=== PATIENT | male | born 1950 | race African-American/Black ===

== ENCOUNTER 2016-06-10 15:54 | Inpatient (IN) ==
--- NOTE | 2016-06-10 16:15 | Emergency Department Note ---
Arrival - Arrival Limitations: Altered Mental Status Source: EMS, RN Notes Reviewed Time Seen by Provider: 06/10/16 16:06 - History of Present Illness HPI Narrative: Patient is a 66-year-old black male who is brought to the emergency department at [facility] in transfer from the emergency department at [facility]. Patient apparently had been at the [facility] since this morning and according to a friend had been "acting funny" ever since a left [facility] early this morning. The patient has a known history of diabetes mellitus. His medication regimen is unknown. Patient began to become more more confused and EMS was called. By the time the patient arrived in the emergency department he was obviously confused and began having seizures which were uncontrolled with Ativan. Patient was intubated at the [facility] emergency department and placed on a Versed infusion. Patient's blood sugar returned from the lab at a level of greater than 1300. The patient was noted to have a large amount of candy in his possession. Patient was transferred to [place] for treatment of status epilepticus and profound hyperglycemia. Patient's serum ketones were noted to be negative. Onset (ago): day(s) (1) Consistency: constant Severity: severe Quality: other Review of System - Review of System ROS unobtainable: due to endotracheal tube, due to mental status Medical,Surgical,& Family Hx - Medical History Endocrine: History of: Diabetes Mellitus (IDDM) Exam Vital Signs: Vital Signs Temperature 97.5 F L 06/10/16 16:04 Pulse Rate 94 H 06/10/16 16:04 Respiratory Rate 14 06/10/16 16:04 Blood Pressure 174/93 06/10/16 16:04 O2 Sat by Pulse Oximetry 100 06/10/16 16:04 GENERAL: This is a acutely ill appearing black male on mechanical ventilation with orotracheal tube present. VITAL SIGNS: Temp 97.5, pulse 94, respirations 14, blood pressure 174/93, O2 sat 100% on mechanical ventilation HEENT: Head is atraumatic and normocephalic. Pupils are equal round react to light. Oropharynx reveals orotracheal tube present, with moist mucous membranes. NECK: Neck is soft and supple without tenderness. There are no masses. There is no lymphadenopathy. LUNGS: Lungs are clear to auscultation. Chest rises symmetrically. There is no chest wall tenderness. CV: Heart is regular rate and rhythm without murmurs rubs or gallops. ABDOMEN: Abdomen is soft, nontender to palpation. There are no abdominal abnormal masses palpated. There is no organomegaly. Bowel sounds are present and active. SKIN: Skin is warm and dry. No rash. EXTREMITIES: Patient has full range of motion without tenderness. There is no pedal edema. NEUROLOGIC: Sedated. Patient is nonverbal. Course - Consultations Consultation #1: Discussed with hospitalist. Patient will be admitted to their service. Time: 16:21 Results - Labs CBC & BMP: 06/10/16 16:21 06/10/16 16:21 Lab Results: I have reviewed the patients labs Labs: Laboratory Tests 06/10/16 06/10/16 06/10/16 16:21 16:21 16:21 WBC 5.2 Hgb 8.8 L Hct 27.1 L Plt Count 143 INR Sodium 145 Potassium 4.8 Chloride 111 H Carbon Dioxide 23 Anion Gap 15.8 H BUN 62 H Creatinine 2.60 H GFR Calculation 27 BUN/Creatinine Ratio 23.00 H Glucose 847 H* Calculated Osmolality 347.7 H Calcium 8.6 Total Bilirubin < 0.39 AST 6 ALT 15 L Alkaline Phosphatase 158 H Total Protein 6.0 L Albumin 2.5 L Globulin 3.5 Albumin/Globulin Ratio 0.7 L Serum Alcohol < 15 L 06/10/16 16:21 WBC Hgb Hct Plt Count INR 1.1 Sodium Potassium Chloride Carbon Dioxide Anion Gap BUN Creatinine GFR Calculation BUN/Creatinine Ratio Glucose Calculated Osmolality Calcium Total Bilirubin AST ALT Alkaline Phosphatase Total Protein Albumin Globulin Albumin/Globulin Ratio Serum Alcohol Lab performed at [facility] and reviewed by me: ABG: PH 7.24, PCO2 45.4, P O2 344.1 after intubation Chemistry: Glucose 1340, BUN 67, creatinine 3.1, calcium 8.6, sodium 132, potassium 5.9, chloride 97, CO2 21, anion gap 20.4 Alcohol level less than 3.0 Lactic acid 5.5 Ketones negative Urine drug screen negative Urinalysis: Specific gravity 1.010, pH 5.5, protein 2+, WBCs 0-4, RBCs 0-2 CBC: WBCs 5600, hemoglobin 10.3, hematocrit 32.8, platelet count 172,000 - EKG EKG results: interpreted by ERMD - Impressions EKG: Normal sinus rhythm with rate of 94, nonspecific ST-T wave changes, normal axis. - Diagnostic Findings Procedure: Chest x-ray: image reviewed by me (No cardio megaly, no infiltrates, endotracheal tube in position above the damion between the clavicles. NG tube is present in the epigastrium. There is a communication problem between the portable x-ray and the system at the present time.), CT: image reviewed by me ( CT head performed at [facility]: No evidence of acute intracranial lesion or hemorrhage.) Disposition Clinical Impression: Status epilepticus, Hyperosmolar (nonketotic) coma Disposition: Still a Patient Condition: Critical Time of Disposition: 16:21
[2016-06-10] MEDS ORDERED: PHENYTOIN INJ 1,000 MG in SODIUM CHLORIDE 0.9% 100 ML IV STA (16:27)
[2016-06-10 16:30] LABS: Basophils % 0.4 % (0.0-0.8); Eosinophils # 0.1 10*3/uL (0.0-0.87); Hematocrit 27.1 VOL% (42.0-52.0); Hemoglobin 8.8 GM/DL (14.0-18.0); Immature Granulocytes % 0.2 %; Immature Granulocytes Absolute 0.01 #; Lymphocytes # 1.2 10*3/uL (1.4-4.0); Lymphocytes % 23.5 % (21.2-54.2); Mean Corpuscular HGB Conc 32.5 GM/DL (32-36); Mean Corpuscular Hemoglobin 26 PG (27-34); Mean Corpuscular Volume 79.7 FL (87-102); Mean Platelet Volume 12.4 FL (9.6-12.0); Monocytes # 0.3 10*3/uL (0.11-0.8); Neutrophils # 3.6 10*3/uL (1.4-7.4); Neutrophils % 68.9 % (38.7-73.9); Platelet Count 143 T/CUMM (130-400); Red Cell Distribution Width 12.6 % (9.3-17.3); White Blood Count 5.2 T/CUMM (4-12)
[2016-06-10 16:39] LABS: INR 1.1; PT Patient Result 11.2 SECS
--- NOTE | 2016-06-10 16:47 | Hospitalist History & Physical ---
Assessment and Plan (1) Acute respiratory failure Status: Acute Assessment and plan: Patient currently on the ventilator secondary to his medical problems will check some arterial blood gases make vent adjustments based on that he's intubated because mental status changes related to seizures and hyperglycemia Current Visit: Yes (2) Status epilepticus Status: Acute Assessment and plan: Status epilepticus exhibiting,get a stat EEG a CT head at outside hospital was unremarkable and her repeated here. We are going to start him on Dilantin consult neurology Current Visit: Yes (3) Hyperosmolar (nonketotic) coma Status: Acute Assessment and plan: Patient has already received 4 L of fluid and is on insulin drip and follow his sugars throughout the night discuss see what he does he's critically ill and may not survive this illness Current Visit: Yes (4) Anemia Status: Acute Current Visit: Yes History of Present Illness Chief complaint: Acute resp failure History of present illness: Mr. Duke is a 66 year old male who was picked up to go to the [place] today by a friend friends that he was acting funny ever since a left this morning he has a known history of diabetes mellitus regimen he got more confused the [facility] A everything he wanted and then developed a status epilepticus which were spotted to Ativan was intubated he was noted to have a sugar greater than 1300 and transferred here for further evaluation no other history is available Medical,Surgical,& Family Hx - Medical History Endocrine: History of: Diabetes Mellitus (IDDM) - Social History Smoking Status: Unknown if ever smoked Frequency of Alcohol Use: Unknown Type of Drug Use: Unknown ROS unobtainable: due to endotracheal tube Exam - Constitutional Vitals: Period Temp Pulse Resp BP Sys/Yoon Pulse Ox Last 24 Hr 97.5 F-97.5 F 94-94 14-14 174-174/93-93 100 Exam: Constitutional: Patient in no apparent distress. Face sees or swollen ET tube in position Eyes: Conjunctivae and lids are normal Pupils equal round react to light and accommodation irises are normal HEENT: External ears and nose without lesions masses or scarring Oropharynx without erythema exudates or thrush Neck is supple without masses no jugular venous distention Lungs: Lungs rhonchi to auscultation and resonant percussion Cardiovascular: Heart auscultation regular rate and rhythm without murmur rub or gallop PMI in the midclavicular line by palpation carotid arteries 2+ without bruits bowel abdomen: Bowel sounds normoactive no masses no rebound or regular tenderness no organomegaly Lymphatic: No anterior posterior cervical or axillary adenopathy Musculoskeletal: No active synovitis no malalignment of the joints good range of motion of upper and lower extremities Skin : normal to inspection and palpation Neurologic: Nonreactive pinpoint pupils responds purposefully to deep pain stimuli equal with both sides Results - Labs CBC & BMP: 06/10/16 16:21
[2016-06-10 16:49] LABS: Alanine Aminotransferase 15 U/L (16-61); Albumin 2.5 G/DL (3.4-5.0); Alkaline Phosphatase 158 U/L (45-117); Aspartate Amino Transferase 6 U/L (0-37); Bilirubin,Total < 0.39 MG/DL (0.2-1.0); Blood Urea Nitrogen 62 MG/DL (7-18); Calcium 8.6 MG/DL (8.5-10.1); Osmolality,Calculated 347.7 MOS/KG (273-304); Potassium 4.8 MMOL/L (3.5-5.1); Sodium 145 MMOL/L (136-145)
[2016-06-10 16:52] LABS: Glucose 847 MG/DL (74-106)
[2016-06-10 16:54] LABS: ABG Base Excess -2.4 MMOL/L (-2.5-2.5); ABG HCO3 23.4 MMOL/L (20-26); ABG PCO2 44.3 MM HG (35-48); ABG PO2 362.8 MM HG (80-95); ABG TCO2 24.7 MMOL/L (23-27); Allen Test Positive; Pt O2 Delivery Device Ventilator
[2016-06-10] MEDS: SODIUM CHLORIDE 0.9% 1,000 ML IV SCH (17:07)
--- NOTE | 2016-06-10 17:19 | XRay Report ---
Exam: XR chest 1V portable Indication: Intubated, respiratory failure Comparison study: 06/10/2016 at 408 PM Findings: The heart, mediastinum and bony structures are stable from prior. Endotracheal tube tip terminates approximately 3 cm from the damion, in similar position. Esophagogastric tube travels below the [id number]. Lungs appear predominantly clear. There is no focal consolidation, pneumothorax or pleural effusion identified. Impression: No acute cardiopulmonary process. Endotracheal and esophagogastric tubes noted in position. PROCEDURE INTERPRETED AT [facility] DEPARTMENT OF RADIOLOGY Final Report Signed by: Maninder Miles
--- NOTE | 2016-06-10 17:21 | XRay Report ---
Exam: XR chest 1V portable Indication: Respiratory failure, intubated Comparison study: None Findings: The heart, mediastinum, and bony structures are within normal limits. An endotracheal tube is noted in position with the tip terminating approximately 2 cm from the damion. An esophagogastric tube is noted in position. The tip terminates within the left upper quadrant, likely in the proximal stomach. There is no focal consolidation, pneumothorax or pleural effusion identified. Impression: Endotracheal and esophagogastric tubes noted in position. Otherwise, no acute cardiopulmonary process. PROCEDURE INTERPRETED AT [facility] DEPARTMENT OF RADIOLOGY Final Report Signed by: Maninder Miles
[2016-06-10] MEDS ORDERED: INSULIN REGULAR DRIP 100 ML IV SCH (17:41)
[2016-06-10] MEDS ORDERED: FAMOTIDINE 20 MG/2 ML VIAL IV SCH (17:41)
[2016-06-10] MEDS ORDERED: ALBUTEROL 2.5 MG/3 ML NEB RESP TX PRN (17:41)
[2016-06-10 17:54] LABS: Apearance,Urine CLEAR (Clear); Bacteria,Urine Occasional /HPF (Few); Bilirubin,Urine Negative (Negative); Blood, Urine Moderate mg/dL (Negative); Glucose,Urine (UA) >=500 mg/dL (Negative); Ketones,Urine Negative (Negative); Mucus,Urine Occasional /LPF (Occasional); Nitrite,Urine Negative (Negative); Protein,Urine 100 MG/DL; RBC,Urine 2 /HPF (0-4); Squamous Epithelial Cell,Urine Occasional /HPF (0-10); Urine Color Straw (Yellow); Urine Urobilinogen < 2.0 EU/DL (0.2-1.0); WBC,Urine 1 /HPF (0-6)
[2016-06-10] MEDS: cefTRIAXone 1,000 MG in SODIUM CHLORIDE 0.9% 100 ML IV SCH (17:59)
[2016-06-10] MEDS: SODIUM CHLORIDE 0.45% 1,000 ML IV SCH (17:59)
[2016-06-10] MEDS: PROPOFOL 1,000 MG/100 ML BOTTLE IV SCH (17:59)
[2016-06-10] MEDS: FAMOTIDINE 20 MG/2 ML VIAL IV SCH (18:00)
[2016-06-10 18:03] LABS: Barbiturates Screen,Urine Negative (Negative); Benzodiazepines Screen,Urine Positive (Negative); Cannabinoid Screen,Urine Negative (Negative); Opiate Screen,Urine Negative (Negative); Phencyclidine Screen,Urine Negative (Negative)
[2016-06-10] MEDS: ALBUTEROL/IPRATROPIUM 3 ML NEB RESP TX SCH (19:32)
[2016-06-11] MEDS: ALBUTEROL/IPRATROPIUM 3 ML NEB RESP TX SCH ×5 (00:10→19:29)
[2016-06-11] MEDS: PROPOFOL 1,000 MG/100 ML BOTTLE IV SCH (01:23)
[2016-06-11] MEDS: SODIUM CHLORIDE 0.45% 1,000 ML IV SCH ×2 (02:28→10:45)
[2016-06-11 03:48] LABS: ABG Base Excess -0.8 MMOL/L (-2.5-2.5); ABG HCO3 23.7 MMOL/L (20-26); ABG Oxygen Saturation 99.9 % (95-100); ABG PCO2 33.7 MM HG (35-48); ABG PH 7.441 (7.35-7.45); ABG TCO2 21.5 MMOL/L (23-27)
--- NOTE | 2016-06-11 07:28 | Hospitalist Progress Note ---
Assessment and Plan (1) Acute respiratory failure Status: Acute Assessment and plan: Patient currently on the ventilator secondary to his medical problems will check some arterial blood gases make vent adjustments based on that he's intubated because mental status changes related to seizures and hyperglycemia 06/11 chest x-ray is clear patient's awake and alert and has good arterial blood gases will put him on T-tube he does well we'll try to extubate today Current Visit: Yes (2) Status epilepticus Status: Acute Assessment and plan: Status epilepticus exhibiting,get a stat EEG a CT head at outside hospital was unremarkable and her repeated here. We are going to start him on Dilantin consult neurology 06/11 no further seizures Current Visit: Yes (3) Hyperosmolar (nonketotic) coma Status: Acute Assessment and plan: Patient has already received 4 L of fluid and is on insulin drip and follow his sugars throughout the night discuss see what he does he's critically ill and may not survive this illness 06/[address] down waiting for ketones blood the day went ahead and held in insulin infusion to we see what his ketones look like Current Visit: Yes (4) Anemia Status: Acute Assessment and plan: Low MCV anemia we'll need iron studies and B12 folate Current Visit: Yes Hospitalist: Subjective Interval history: Patient will awaken and follow commands. No further seizures Exam - Constitutional Vitals: Period Temp Pulse Resp BP Sys/Yoon Pulse Ox Last 24 Hr 96.4 F-98.8 F 77-93 10-23 80-159/53-79 100-100 Exam: Constitutional: Patient in no apparent distress. Face sees or swollen ET tube in position Eyes: Conjunctivae and lids are normal Pupils equal round react to light and accommodation irises are normal HEENT: External ears and nose without lesions masses or scarring Oropharynx without erythema exudates or thrush Neck is supple without masses no jugular venous distention Lungs: Lungs rhonchi to auscultation and resonant percussion Cardiovascular: Heart auscultation regular rate and rhythm without murmur rub or gallop PMI in the midclavicular line by palpation carotid arteries 2+ without bruits bowel abdomen: Bowel sounds normoactive no masses no rebound or regular tenderness no organomegaly Lymphatic: No anterior posterior cervical or axillary adenopathy Musculoskeletal: No active synovitis no malalignment of the joints good range of motion of upper and lower extremities Skin : normal to inspection and palpation Neurologic: Nonreactive pinpoint pupils responds purposefully to deep pain stimuli equal with both sides Results - Labs CBC & BMP: 06/10/16 16:21 06/10/16 16:21
--- NOTE | 2016-06-11 07:49 | XRay Report ---
History: Shortness of breath Date: 06/11/2016 at 3:15 AM Study: Chest x-ray AP portable Comparison exam: Chest x-ray 06/10/2016 The endotracheal and nasogastric tubes remain in satisfactory position. The cardiomediastinal silhouette and pulmonary vasculature are unchanged. The lungs are unchanged, generally clear aside from some minimal linear subsegmental atelectasis in the right mid to lower lung. There is no gross pleural effusion. Osseous structures are unremarkable. Impression: No significant interval change from the previous day PROCEDURE INTERPRETED AT [facility] DEPARTMENT OF RADIOLOGY Final Report Signed by: Dr. Alida Reveles
[2016-06-11 08:09] LABS: Basophils % 0.4 % (0.0-0.8); Eosinophils # 0.1 10*3/uL (0.0-0.87); Eosinophils % 1.8 % (0.00-10.9); Hematocrit 24.7 VOL% (42.0-52.0); Hemoglobin 8.2 GM/DL (14.0-18.0); Immature Granulocytes % 0.1 %; Immature Granulocytes Absolute 0.01 #; Lymphocytes # 2.4 10*3/uL (1.4-4.0); Lymphocytes % 32.7 % (21.2-54.2); Mean Corpuscular HGB Conc 33.2 GM/DL (32-36); Mean Corpuscular Hemoglobin 26 PG (27-34); Mean Corpuscular Volume 77.9 FL (87-102); Mean Platelet Volume 12.3 FL (9.6-12.0); Monocytes # 0.7 10*3/uL (0.11-0.8); Monocytes % 8.8 % (1.7-12.7); Neutrophils # 4.1 10*3/uL (1.4-7.4); Neutrophils % 56.2 % (38.7-73.9); Platelet Count 159 T/CUMM (130-400); Red Blood Count 3.17 MC/CUMM (3.8-5.5); Red Cell Distribution Width 12.9 % (9.3-17.3); White Blood Count 7.4 T/CUMM (4-12)
[2016-06-11 08:37] LABS: ABG HCO3 21.9 MMOL/L (20-26); ABG Oxygen Saturation 98.9 % (95-100); ABG PCO2 41.1 MM HG (35-48); ABG PH 7.346 (7.35-7.45); ABG TCO2 20.9 MMOL/L (23-27)
[2016-06-11 08:38] LABS: Alanine Aminotransferase 12 U/L (16-61); Albumin 2.3 G/DL (3.4-5.0); Alkaline Phosphatase 94 U/L (45-117); Aspartate Amino Transferase 10 U/L (0-37); Bilirubin,Total < 0.39 MG/DL (0.2-1.0); Blood Urea Nitrogen 53 MG/DL (7-18); Calcium 8.4 MG/DL (8.5-10.1); Glucose 142 MG/DL (74-106); Osmolality,Calculated 316.7 MOS/KG (273-304); Potassium 4.4 MMOL/L (3.5-5.1); Sodium 152 MMOL/L (136-145)
[2016-06-11 08:39] LABS: Lactic Acid 1.4 MMOL/L (0.4-2.0)
[2016-06-11 08:58] LABS: % Iron Saturation 9.7 % (18-50); Ferritin 145.4 ng/ml (26-388)
[2016-06-11 09:16] LABS: Folate 19.5 NG/ML (5.4-24.0)
[2016-06-11] MEDS: INSULIN REGULAR 100 UNIT/ML SUBCUT SCH ×5 (10:44→23:58)
[2016-06-11] MEDS: amLODIPine 5 MG TABLET PO SCH (10:44)
[2016-06-11 10:47] LABS: ABG Base Excess -4.4 MMOL/L (-2.5-2.5); ABG HCO3 20.6 MMOL/L (20-26); ABG PCO2 40.2 MM HG (35-48); ABG PH 7.329 (7.35-7.45); ABG PO2 52.5 MM HG (80-95); ABG TCO2 19.9 MMOL/L (23-27); Allen Test Positive
[2016-06-11] MEDS: SODIUM CHLORIDE 0.9% 1,000 ML IV SCH (10:54)
--- NOTE | 2016-06-11 11:07 | EKG Report ---
Stationary ECG Study [facility] ER Test Date: 06/10/2016 4:10:25 PM Pat Name: JACKELYN PARHAM Department: Room: 107 Gender: M [employer] Machine Operator: : [id number] Requested by: Junito Hernandez Order Number: [id number] Reading MD: RUSS MEZA Intervals [place] Rate: 94 P: 61 MN: 181 QRS: 48 QRSD: 89 T: 22 QT: 343 QTc: 395 Interpretive Statements SINUS RHYTHM Electronically Signed On 06-11-16 11:31:46 ELEVATOR TECHNICIAN by RUSS MEZA [email or web address]
[2016-06-11] MEDS: cefTRIAXone 1,000 MG in SODIUM CHLORIDE 0.9% 100 ML IV SCH (17:56)
[2016-06-11] MEDS: FAMOTIDINE 20 MG/2 ML VIAL IV SCH (17:59)
[2016-06-11] MEDS: INSULIN GLARGINE 100 UNIT/ML SUBCUT SCH (21:55)
[2016-06-12] MEDS: ALBUTEROL/IPRATROPIUM 3 ML NEB RESP TX SCH ×4 (01:37→19:00)
[2016-06-12] MEDS: SODIUM CHLORIDE 0.45% 1,000 ML IV SCH ×2 (02:22→05:31)
[2016-06-12] MEDS: INSULIN REGULAR 100 UNIT/ML SUBCUT SCH ×5 (02:24→20:17)
[2016-06-12 04:01] LABS: Basophils % 0.3 % (0.0-0.8); Eosinophils # 0.1 10*3/uL (0.0-0.87); Eosinophils % 1.4 % (0.00-10.9); Hemoglobin 7.5 GM/DL (14.0-18.0); Immature Granulocytes % 0.3 %; Immature Granulocytes Absolute 0.02 #; Lymphocytes # 1.8 10*3/uL (1.4-4.0); Lymphocytes % 27.5 % (21.2-54.2); Mean Corpuscular HGB Conc 32.6 GM/DL (32-36); Mean Corpuscular Hemoglobin 26 PG (27-34); Mean Corpuscular Volume 80.1 FL (87-102); Mean Platelet Volume 11.9 FL (9.6-12.0); Monocytes # 0.5 10*3/uL (0.11-0.8); Monocytes % 7.5 % (1.7-12.7); Neutrophils # 4.1 10*3/uL (1.4-7.4); Platelet Count 129 T/CUMM (130-400); Red Blood Count 2.87 MC/CUMM (3.8-5.5); Red Cell Distribution Width 13.1 % (9.3-17.3); White Blood Count 6.5 T/CUMM (4-12)
[2016-06-12 04:24] LABS: Magnesium 1.7 MG/DL (1.8-2.4); Potassium 3.5 MMOL/L (3.5-5.1)
[2016-06-12] MEDS ORDERED: DEXTROSE 50% 25 GM/50 ML VIAL IV ONE (05:52)
[2016-06-12] MEDS ORDERED: DEXTROSE 50% 25 GM/50 ML VIAL IV PRN (05:57)
[2016-06-12] MEDS: INSULIN GLARGINE 100 UNIT/ML SUBCUT SCH ×2 (08:30→20:17)
[2016-06-12] MEDS: amLODIPine 5 MG TABLET PO SCH (08:30)
[2016-06-12] MEDS: FAMOTIDINE 20 MG/2 ML VIAL IV SCH ×2 (08:35→20:17)
[2016-06-12] MEDS ORDERED: MAGNESIUM SULF RIDER 2 GM in PREMIX 1 EACH IV ONE (13:34)
[2016-06-12] MEDS ORDERED: SODIUM CHLORIDE 0.9% 250 ML IV PRN (13:34)
--- NOTE | 2016-06-12 13:37 | Hospitalist Progress Note ---
Assessment and Plan (1) Status epilepticus Status: Acute Assessment and plan: EEG normal discussed with dr reyes, he will decide if seizure meds are necessary Current Visit: Yes (2) Hyperosmolar (nonketotic) coma Status: Acute Assessment and plan: resolved, cont lantus bid Current Visit: Yes (3) Acute respiratory failure Status: Acute Assessment and plan: resolved, extubated yesterday Current Visit: Yes (4) Anemia Status: Acute Assessment and plan: 2 units of PRBC, occult blood for stool Current Visit: Yes (5) Hypertension Status: Acute Assessment and plan: cont norvasc and added coreg Current Visit: Yes (6) IDDM (insulin dependent diabetes mellitus) Status: Acute Assessment and plan: Noncompliant with insulin. Continue Lantus 20 units twice daily Current Visit: Yes Hospitalist: Subjective Interval history: I will Hep-Lock IV fluids today. He has had no seizures overnight. He is wanting to eat. His blood sugars are 236 Exam - Constitutional Vitals: Period Temp Pulse Resp BP Sys/Yoon Pulse Ox Last 24 Hr 98.1 F-100.1 F 85-99 10-18 100-166/52-86 95-100 Exam: Heart Rate-[RRR] Lungs-[CTAB] GI-[+bs soft, NT] Ext-[no edema] neuro alert and oriented 2, motor 5/5 psych normal mood and affect general no acute distress Results - Labs CBC & BMP: 06/12/16 03:40 06/12/16 03:40 Lab Results: I have reviewed the past 24 hour labs - Diagnostic Findings Procedure: Chest x-ray: report reviewed by me (nothing acute )
[2016-06-12] MEDS: CARVEDILOL 3.125 MG TABLET PO SCH ×2 (13:56→20:18)
--- NOTE | 2016-06-12 15:09 | Neurology Consult Note ---
History of Present Illness History of present illness: Mr. Duke is a 66 year old right-handed -[place] gentleman with past medical history significant for diabetes admitted to the hospital with confusion unresponsiveness and seizures. Patient was picked up by his friend to go to the [facility] and according to the patient he was passed out. He was found to have blood sugar of more than 1300. He was given Ativan which stopped the seizures. He is doing fine and back to his baseline. No imaging studies done. EEG shows no abnormalities and is within normal limits. Patient is also requiring blood transfusion. Home Medications Medication Instructions Recorded Confirmed Type Unable To Obtain [Unable to Obtain] 06/10/16 06/10/16 History Allergies Allergy/AdvReac Type Severity Reaction Status Date / Time No Known Allergies Allergy Unverified 06/10/16 17:26 12 point system: reviewed and no additional remarkable complaints except as stated Medical,Surgical,& Family Hx - Medical History Neurology: Comment Only: Seizures (unknown) Endocrine: History of: Diabetes Mellitus (IDDM) - Social History Smoking Status: Never smoker Frequency of Alcohol Use: None Type of Drug Use: None Exam - Constitutional Vitals: Period Temp Pulse Resp BP Sys/Yoon Pulse Ox Last 24 Hr 97.8 F-100.1 F 85-99 10-18 100-166/52-86 95-100 Exam: GENERAL: Patient is in no acute distress. NECK: Neck is supple. There is no JVD. No carotid bruits present. No thyroid masses. CVS: First and second heart sounds are normal. There is no S3 present. Regular rate and rhythm. RESPIRATORY: Lungs are clear to auscultation without any rales or rhonchi. ABDOMEN: Soft and non-tender. Bowel sounds are present. There is no hepatosplenomegaly. EXT: There is no palpable edema. Peripheral pulses are present. Skin: No rashes Central Nervous system: General: Alert, awake and Oriented x 3 Speech: Fluent Comprehension: Intact and normal Facial expressions: Normal Cranial Nerves: CN1/Olfactory: Normal CN II/ Optic: Normal, Visual Forrester unreliable CN III, and : ESPERANZA & EOMI CN V: Normal & intact CN VII: face is symmetric CNVIII: Normal CN XI/X/XI/XII: Intact and Normal Motor: Bulk and Tone is normal. Strength in the right 4/5 Strength in the left 4/5 Sensory: Grossly intact for all the modalities of PP, LT and temp sense Reflexes: 1+ and symmetrical Cerebellar function: Normal finger to nose and heel to alejo testing. Gait: Not tested this time Results - Labs CBC & BMP: 06/12/16 03:40 06/12/16 03:40 Assessment and Plan (1) Seizures due to metabolic disorder Status: Acute Assessment and plan: No AEDs are indicated at this time. EEG is within normal limits. We'll perform MRI of the brain. Thank you for the consult. Current Visit: Yes
[2016-06-12] MEDS: cefTRIAXone 1,000 MG in SODIUM CHLORIDE 0.9% 100 ML IV SCH (19:09)
--- NOTE | 2016-06-12 20:39 | Electroencephalogram ---
HISTORY: A 66-year-old male with a history of status epilepticus. INTRODUCTION: A digital EEG was performed using the standard 10/20 system of electrode placement wi th one channel of EKG monitoring. Photic stimulation is performed. DESCRIPTION OF RECORD: The background is well organized, consists of 8.5-9 hertz moderate amplitude bilateral symmetrical alpha rhythm predominant in the posterior head region which attenuates with e ye opening. Photic stimulation elicits a driving response at all flash frequencies. Hyperventilatio n was not performed. There are no focal, sharp wave, spike and wave activity seen. Heart rate 84 beats per minute. IMPRESSION: NORMAL EEG DURING WAKEFULNESS. CLINICAL CORRELATION: No focal nor epileptiform features are seen. Normal EEG does not rule out th e diagnostic possibility of epilepsy. Clinical correlation is suggested
[2016-06-13] MEDS: ALBUTEROL/IPRATROPIUM 3 ML NEB RESP TX SCH ×4 (00:20→20:30)
[2016-06-13] MEDS: INSULIN GLARGINE 100 UNIT/ML SUBCUT SCH (08:56)
[2016-06-13] MEDS: INSULIN REGULAR 100 UNIT/ML SUBCUT SCH ×4 (08:56→21:31)
[2016-06-13] MEDS: CARVEDILOL 3.125 MG TABLET PO SCH ×2 (08:57→20:56)
[2016-06-13] MEDS: amLODIPine 5 MG TABLET PO SCH (08:57)
[2016-06-13] MEDS: FAMOTIDINE 20 MG/2 ML VIAL IV SCH ×2 (08:57→21:28)
--- NOTE | 2016-06-13 12:22 | Magnetic Resonance Report ---
MRI of the brain without contrast. Indication: Decreased level of consciousness. Seizures. No prior study. Axial diffusion, axial ADC, axial gradient echo, sagittal T1, axial T2, axial FLAIR, axial T1, and coronal T2 images were performed. There is generalized prominence of the ventricles and sulci consistent with age-appropriate atrophy. No cortical infarcts are seen. No acute ischemic lesions are noted. No evidence of acute hemorrhage. No mass effect or midline shift. The venous sinuses are patent. At the distal right internal carotid artery, there is slight signal void protuberance, which may represent a tortuous vessel or small focus of aneurysmal dilatation. The cerebellar tonsils are low lying but not reading criteria for Chiari malformation. There is fluid present within the mastoid air cells. There is mild paranasal sinus mucosal thickening. Impression: 1. Slightly prominent signal void at the distal right ICA, which may represent tortuous vessel or small focus of aneurysmal dilatation. MRA of the [place] is recommended for further evaluation. 2. Low-lying cerebellar tonsils. 3. Minimal white matter changes, nonspecific. These can be seen with migraine headache syndrome, vasculitis, chronic microvascular ischemia, post viral and postinflammatory entities. Occasionally, demyelinating processes can have this appearance as well. 4. Mild paranasal sinus disease and minimal mastoid fluid. PROCEDURE INTERPRETED AT [facility] DEPARTMENT OF RADIOLOGY Final Report Signed by: Dr. Nicolette Oh
--- NOTE | 2016-06-13 13:32 | Discharge Summary ---
Hospital Course - Hospital Course Hospital Course: 66-year-old -[place] male who presented to the emergency room for status epilepticus due to hyperosmolar. Patient's blood sugar on admission was greater than 500 and his hemoglobin A1c was greater than 12. Patient is noncompliant with his insulin. He lives in [place] but was down here gambling. Patient had acute respiratory failure due to the status epilepticus. He was intubated but was subsequently extubated the following day. Dr. Hector has seen the patient and does not believe that he needs to be on seizure medications. His MRI of his of his brain ordered today showed a possible small dilatation suggestive of a small aneurysm and they recommended an MRA of [place]. Patient was noted to be anemic and received 2 units packed red blood cells yesterday. He was started on Protonix but needs further outpatient workup if his anemia. Patient's mental capacity is not normal. Speaking with 1 of his friends who helps care for him, he is mentally slow but his family is not very involved. Patient needs follow-up with his primary care doctor for further tuning of his diabetes in [place] where he lives and needs workup for his anemia in [place]. - Time spent with patient Time with patient DS: Greater than 30 minutes Diagnosis - Discharge Diagnosis (1) Status epilepticus Status: Acute (2) Hyperosmolar (nonketotic) coma Status: Acute (3) Acute respiratory failure Status: Acute (4) Anemia Status: Acute (5) Hypertension Status: Acute (6) IDDM (insulin dependent diabetes mellitus) Status: Acute Discharge Plan - Discharge Data Disposition: Disch To Home/Self Care Condition at Discharge: Stable Discharge Diet: diabetic diet Activity: resume usual activities as tolerated - Discharge Medications New Pantoprazole Tab [Protonix Tab] 40 mg PO DAILY #30 tablet amLODIPine [Norvasc] 5 mg PO DAILY #30 tablet Carvedilol [Coreg] 3.125 mg PO BID #60 tablet Insulin Glargine,Hum.rec.anlog [Lantus SoloStar] 30 unit SUBCUT DAILY #3 ml - Follow Up or Referral Follow Up: arash, [Other] (needs further workup of his anemia, needs further tuning of his insulin ) - Forms/Instructions Exam - Constitutional Vitals: Period Temp Pulse Resp BP Sys/Yoon Pulse Ox Last 24 Hr 97.6 F-99.7 F 74-93 10-25 102-176/65-102 95-100 General appearance: normal weight, no acute distress - Respiratory Respiratory exam: Present: clear to auscultation bilaterally. Absent: rhonchi, wheezes - Cardiovascular Cardiovascular exam: Present: regular rate and rhythm. Absent: systolic murmur - GI/Abdominal GI/Abdominal exam: Present: normal bowel sounds, soft. Absent: tenderness Discharge Results Procedures and tests throughout hospitalization: Pending Orders 06/12/16 13:44 Occult Blood, Stool Stat 06/13/16 13:24 MR angio head w con (COW) Stat Labs on day of discharge: Labs from last 24 hours 06/13/16 06/12/16 06/12/16 07:19 20:11 15:39 POC Glucose 70 L 238 H 281 H Blood Type Antibody Screen Crossmatch 06/12/16 06/12/16 14:49 03:40 POC Glucose Blood Type O POSITIVE O POSITIVE Antibody Screen Negative Crossmatch See Detail Preliminary micro results at discharge 06/10/16 18:24 Blood Culture - Preliminary Blood No growth at 1 day 06/10/16 18:24 Blood Culture - Preliminary Blood No growth at 1 day DS: Provider Date of admission: 06/10/16 16:52 Primary care physician: . No PCP Attending physician on admission: Janes Purdy MD Consults: 06/10/16 17:48 Consult to Pharmacy [CONS] Routine Reason for Pharmacy Consult: Adjust Meds Renal Funct 06/10/16 18:22 Consult to [facility], Educator [CONS] Routine Reason for Edger Tailer: Diabetes Education Consult to Dietitian [CONS] Routine Reason for Dietitian: Dietary Consult 06/10/16 19:00 Consult to Physician [CONS] Routine Comment: Consulting Provider: De Hector Consulting Provider Notified: Yes When should Consulting Provider be notified: In am Consult to Specialist Group: Neurology When should Consulting Provider be notified: In am Person Notified: MATILDE Date Notified: 06/12/16 Time Notified: 11:25 Discharging clinician: Marcela Tee MD
--- NOTE | 2016-06-13 16:12 | Magnetic Resonance Report ---
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 Abnormal MRI brain Date: 06/13/2016 Study: MRA [place] Comparison exam: MRI brain without contrast A 3-D [id number] MRA of the [place] was performed without IV contrast on the 1.5 Berenice magnet. In addition to axial source images, 3-D maximum intensity projection images were also archived and evaluated. There is no patent cerebral artery aneurysm. The small caliber basilar artery is without hemodynamically significant stenosis. The left PICA and bilateral superior cerebellar arteries are patent bilaterally without significant abnormality. 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 Both posterior communicating arteries are patent. The posterior cerebral arteries are otherwise patent and unremarkable. There is no significant stenosis of the distal internal carotid arteries bilaterally. The anterior and middle cerebral arteries are patent. 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 Alida Reveles
[2016-06-13] MEDS: cefTRIAXone 1,000 MG in SODIUM CHLORIDE 0.9% 100 ML IV SCH (17:27)
[2016-06-14] MEDS: ALBUTEROL/IPRATROPIUM 3 ML NEB RESP TX SCH ×2 (00:35→07:33)
[2016-06-14 07:25] VITALS: BP 154/82
[2016-06-14] MEDS ORDERED: INSULIN GLARGINE 100 UNIT/ML SUBCUT SCH (09:00)
[2016-06-14] MEDS: INSULIN REGULAR 100 UNIT/ML SUBCUT SCH (09:00)
[2016-06-14] MEDS: amLODIPine 5 MG TABLET PO SCH (09:01)
[2016-06-14] MEDS: CARVEDILOL 3.125 MG TABLET PO SCH (09:02)
[2016-06-14] MEDS: FAMOTIDINE 20 MG/2 ML VIAL IV SCH (09:06)
== END 2016-06-14 12:07 | disposition home or self-care (01) | DRG 100 ==
LOC: N.ED 15:54 → N.EDINP 16:52 → N.ICU 17:11 → N.5E 06-12 21:43
PROVIDERS: ADMIT Internal Medicine Pulmonary Disease; ATTEND Internal Medicine Pulmonary Disease